=== PATIENT | male | born 1980 | race Caucasian/White ===

== ENCOUNTER 2020-07-28 13:54 | Emergency (ER) | payer SELFPAY ==
[~2020-07-28] VITALS: Ht 175.3 cm; Wt 84.1 kg
[2020-07-28] MEDS ORDERED: MORPHINE SULFATE 4 MG/ML CPJ (NOT FOR IM USE) IV STA (14:47)
[2020-07-28] MEDS ORDERED: KETOROLAC 30MG/ML VIAL IV STA (14:47)
[2020-07-28] MEDS ORDERED: ONDANSETRON HCL 4MG/2ML INJ IV STA (14:47)
[2020-07-28] MEDS ORDERED: SODIUM CHLORIDE 0.9% 1,000 ML IV ONE (15:00)
[2020-07-28 15:12] LABS: CHLORIDE 109 mEq/L (98-107)
[2020-07-28 15:16] LABS: BASOPHILS % 0.3 % (0.0-2.0); EOSINOPHILS % 1.2 % (0.0-5.0); HEMATOCRIT. 45.1 % (42.0-52.0); HEMOGLOBIN. 14.9 g/dL (14.0-18.0); MEAN CORPUSCULAR HEMOGLOBIN 28.8 pg (28.0-32.0); MONOCYTES % 4.6 % (2.0-8.0); NEUTROPHILS % 81.9 % (40.0-76.0); RED BLOOD CELL COUNT 5.18 mill/uL (4.7-6.1); RED CELL DISTRIBUTION WIDTH 13.6 % (11.6-14.6)
[2020-07-28 16:39] LABS: CLARITY URINE CLEAR (CLEAR); COLOR URINE YELLOW (YELLOW); KETONES URINE NEGATIVE (NEGATIVE); LEUKOCYTE ESTERASE URINE NEGATIVE (NEGATIVE); NITRITE URINE NEGATIVE (NEGATIVE); OCCULT BLOOD URINE TRACE (NEGATIVE); PH URINE 7.5 (4.5-8.0); PROTEIN URINE NEGATIVE (NEGATIVE); SPECIFIC GRAVITY URINE 1.014 (1.005-1.030); UROBILINOGEN URINE 0.2 E.U./dL (0.2-1.0)
[2020-07-28 18:15] VITALS: BP 170/105
[2020-07-28] MEDS ORDERED: IBUP-2028 MT (18:52)
[2020-07-28] MEDS ORDERED: TAMS-11 MT (18:52)
[2020-07-28] MEDS ORDERED: HYDR-4001 MT (19:00)
== END 2020-07-28 19:25 | disposition home or self-care (01) ==
LOC: EDBD 13:54 → ER 13:54
DX: N20.0 Calculus of kidney (principal); Z79.899 Other long term (current) drug therapy
CPT/HCPCS: 36415; 74176; 80053; 81003; 85025; 93005; 96361; 96374; 96375; 99285; J1885; J2270; J2405; Z7610